=== PATIENT | female | born 1950 | race Caucasian/White ===

== ENCOUNTER 2022-06-16 23:12 | Observation (INO) | payer MEDICARE, OTHER ==
[~2022-06-16] VITALS: Ht 160 cm; Wt 62.0 kg
[2022-06-16 23:46] LABS: BASOPHILS # (AUTO) 0.1 X10'3 (0-0.2); BASOPHILS % (AUTO) 1.3 % (0-1); EOSINOPHILS # (AUTO) 0.8 X10'3 (0-0.9); EOSINOPHILS % (AUTO) 11.2 % (0-6); HEMATOCRIT 32.7 % (35.0-45.0); HEMOGLOBIN 11.4 g/dl (12.0-16.0); LYMPHOCYTES # (AUTO) 2.7 X10'3 (1.1-4.8); LYMPHOCYTES % (AUTO) 39.8 % (21-51); MEAN CORPUSCULAR HEMOGLOBIN 32.2 PG (27.0-31.0); MEAN CORPUSCULAR HGB CONC 34.7 g/dL (33.0-36.5); MEAN CORPUSCULAR VOLUME 92.8 FL (78-98); MEAN PLATELET VOLUME 6.6 FL (7.4-10.4); MONOCYTES # (AUTO) 0.7 X10'3 (0-0.9); MONOCYTES % (AUTO) 10.3 % (2-12); NEUTROPHILS # (AUTO) 2.5 X10'3 (1.8-7.7); NEUTROPHILS % (AUTO) 37.4 % (42-75); PLATELET COUNT 355 X10'3 (140-440); RED BLOOD COUNT 3.52 X10'6 (4.20-5.60); RED CELL DISTRIBUTION WIDTH 14.2 % (11.5-14.5); WHITE BLOOD COUNT 6.7 X10'3 (4.5-11.0)
[2022-06-17] VITALS (13 sets, daily range): BP systolic 109–147; BP diastolic 56–76
[2022-06-17 00:03] LABS: ALANINE AMINOTRANSFERASE 23 U/L (12-78); ALBUMIN 3.5 G/DL (3.4-5.0); ALKALINE PHOSPHATASE 43 IU/L (46-116); ANION GAP 9 (8-16); ASPARTATE AMINO TRANSFERASE 22 U/L (10-37); BILIRUBIN,TOTAL 0.1 MG/DL (0.1-1.0); BLOOD UREA NITROGEN 19 MG/DL (7-18); CALCIUM 8.8 MG/DL (8.5-10.1); CHLORIDE 102 MMOL/L (99-107); CREATININE 0.95 MG/DL (0.40-0.90); GLUCOSE 111 MG/DL (70-104); POTASSIUM 3.7 MMOL/L (3.5-5.1); SODIUM 136 MMOL/L (135-145); TOTAL CARBON DIOXIDE 24.7 MMOL/L (24-32); TOTAL PROTEIN 6.9 G/DL (6.4-8.2); eGFR 58 ML/MIN
[2022-06-17] MEDS ORDERED: insulin Lispro (HumaLOG) vial - multi-dose SQ SCH (01:50)
[2022-06-17] MEDS ORDERED: metoprolol tartrate 1mg/ml inj IV PRN (01:50)
[2022-06-17] MEDS ORDERED: DEXTROSE 15 GM of carb/4 tabs (each vial/BOTTLE has 4 tablets) PO PRN ×2 (01:50)
[2022-06-17] MEDS ORDERED: PERFLUTREN PROTEIN-A MICROSPHR (Optison) 0.22 MG/ML 3ML VIAL IV PRN (01:50)
[2022-06-17] MEDS ORDERED: acetaminophen 325mg tablet PO PRN (01:50)
[2022-06-17] MEDS ORDERED: POTASSIUM BICARB 20meq eff tab 20 MEQ TABLET.EFF PO PRN ×2 (01:50)
[2022-06-17] MEDS ORDERED: magnesium 4gm in 100ml NS 100 ML IV PRN (01:50)
[2022-06-17] MEDS ORDERED: ondansetron/PF 4mg/2ml inj IV PRN (01:50)
[2022-06-17] MEDS ORDERED: MESSAGE TO PHARMACY PO ONE (01:50)
[2022-06-17] MEDS ORDERED: nitroGLYCERIN 0.4mg SUBLingual tab SL PRN ×2 (01:50→02:20)
[2022-06-17] MEDS ORDERED: magnesium 2GM in 50ml NS 50 ML IV PRN (01:50)
[2022-06-17] MEDS ORDERED: regadenoson 0.4mg/5ml syringe IV PRN (01:50)
[2022-06-17] MEDS ORDERED: mag hydrox/Alum hydrox/simeth 30ml oral suspension PO PRN (01:50)
[2022-06-17] MEDS ORDERED: potassium CL 10mEq/100ml bag 100 ML IV PRN (01:50)
[2022-06-17] MEDS ORDERED: aminophylline 500mg/20ml vial IV PRN (01:50)
[2022-06-17] MEDS ORDERED: glucagon, human recombinant 1mg kit SUBCUT PRN (01:50)
[2022-06-17] MEDS ORDERED: dextrose 50%-water 50ml dispensing syringe IV PRN ×2 (01:50)
[2022-06-17] MEDS ORDERED: aspirin 81mg tab.chew PO ONE (01:55)
[2022-06-17 03:12] LABS: HEMOGLOBIN A1C 5.5 % (4.5-6.2)
[2022-06-17 03:17] LABS: CHOL/HDL RATIO 2.8 (0.00-4.99); CHOLESTEROL 140 MG/DL (0-200); HDL CHOLESTEROL 50 MG/DL (35-60); LDL CHOLESTEROL 71 MG/DL (50-100); MAGNESIUM 1.6 MG/DL (1.5-2.4); TRIGLYCERIDES 68 MG/DL (20-135)
--- NOTE | 2022-06-17 05:11 | NUR ---
AT 0450 PT C/O CHEST PAIN OF 2 TO 3 vITALS TAKEN b/p 132/60 (95) HR 80 O2 STAT 97 ON ROOM AIR PREPARED TO GIVE NITROSTAT TAB WHEN PT STATED PAIN WAS GONE AT O510 G JENNIFER RN
--- NOTE | 2022-06-17 06:30 | NUR ---
Patient in room PCU 3027. I have received report from MARIA L Juares and had the opportunity to ask questions and assume patient care.
--- NOTE | 2022-06-17 07:24 | NUR ---
page to Dr Gomez PAGER ID: [phone] MESSAGE: Tia U [id number] re [facility] [id number] pt requesting Benadryl for anxiety prior to lexiscan. please call with orders, thank you
[2022-06-17] MEDS ORDERED: diphenhydrAMINE 25mg capsule PO ONE (07:25)
[2022-06-17] MEDS: docusate sod 100mg capsule PO SCH ×2 (07:50→08:00)
[2022-06-17] MEDS ORDERED: K and/or MAG REPLACEMENT MC SCH (08:00)
--- NOTE | 2022-06-17 08:40 | NUR ---
PT TO JOE
[2022-06-17] MEDS ORDERED: aminophylline inj. 10 ML IV ONE (09:21)
[2022-06-17] MEDS ORDERED: FENO145T38 PO (10:01)
[2022-06-17] MEDS ORDERED: LEVO112T5 PO (10:01)
[2022-06-17] MEDS ORDERED: HYDR200T80 PO (10:01)
[2022-06-17] MEDS ORDERED: AMIT-189 PO (10:01)
--- NOTE | 2022-06-17 10:05 | NUR ---
paged Dr Gomez to let her know med rec is completed
--- NOTE | 2022-06-17 10:07 | NUR ---
Pt back from [facility]
--- NOTE | 2022-06-17 13:29 | NUR ---
PAGER ID: [phone] MESSAGE: Tia Kolton [id number] [facility] [address]44O please call regarding no nitro SL ordered for DC, thank you Addendum: 06/17/22 at 1330 by Tia Ornelas RN T/C from Dr Gomez stating chest pain was not cardiac and she does not want to write prescription for SL nitro on discharge.
--- NOTE | 2022-06-17 13:55 | NUR ---
Pt discharged to home, with all belongings in private vehicle, accompanied by . Discharge instructions and medications reviewed. No new prescriptions ordered. Pt instructed to follow up with PCP 1 one week and c web developer at scheduled appointment. Pt also instructed to seek medical attention for any new or worsening symptoms. Pt states understanding and willingness to comply with all discharge instructions. IV DC'd, cannula intact. Pt escorted to front lobby by primary RN.
[2022-06-17] MEDS ORDERED: enoxaparin 40mg/0.4ml syringe SQ SCH (20:00)
[2022-06-17] MEDS ORDERED: insulin glargine (Lantus) pen - multi-dose SQ SCH (21:00)
[2022-06-18] MEDS ORDERED: amitriptyline 50mg tablet PO SCH (08:00)
[2022-06-18] MEDS ORDERED: fenofibrate 145mg tablet PO SCH (08:00)
[2022-06-18] MEDS ORDERED: levoTHYROXINE 112mcg tablet PO SCH (08:00)
[2022-06-18] MEDS ORDERED: hydroxychloroquine 200mg tablet PO SCH (08:00)
== END 2022-06-17 13:56 | disposition home or self-care (01) ==
LOC: ER 23:13 → ED HOLD 06-17 01:55 → UNDOADMIN 06-17 01:55 → ED HOLD 06-17 02:21 → INTOOBSV 06-17 02:21 → PCU 3S 06-17 03:20
PROVIDERS: ADMIT Family Medicine; ATTEND Internal Medicine
DX: R07.89 Other chest pain (principal); E78.5 Hyperlipidemia, unspecified; M06.9 Rheumatoid arthritis, unspecified; N28.9 Disorder of kidney and ureter, unspecified; E78.00 Pure hypercholesterolemia, unspecified; E11.9 Type 2 diabetes mellitus without complications; I10 Essential (primary) hypertension; I25.2 Old myocardial infarction; Z87.891 Personal history of nicotine dependence; Z79.899 Other long term (current) drug therapy
CPT/HCPCS: 36415; 71045; 78452; 80053; 80061; 83036; 83735; 83880; 84443; 84484; 85025; 93005; 93017; 93306; 96374; 99285; A9500; G0378; J0280; J2785; Q0163; J1815